=== PATIENT | male | born 1980 | race Caucasian/White ===

== ENCOUNTER → 2017-05-09 | Outpatient (CLI) | payer BC ==
--- NOTE | 2017-05-09 15:05 | RADIOLOGY REPORT (SQ) ---
EXAM DESCRIPTION: FOOT LEFT COMPLETE COMPLETED DATE/TIME: 05/09/2017 1:01 pm REASON FOR STUDY: LEF FOOT FX (M84.375) M84.375A STRESS FRACTURE, LEFT FOOT, INITIAL ENCOUNTER FOR F COMPARISON: None. NUMBER OF VIEWS: Three views. TECHNIQUE: AP, lateral and oblique radiographic images acquired of the left foot. LIMITATIONS: None. FINDINGS: MINERALIZATION: Normal. BONES: No acute fracture or dislocation. No worrisome bone lesions. JOINTS: No effusions. SOFT TISSUES: No radiopaque foreign body. Diffuse forefoot soft tissue swelling. 1 cm calcification /ossification along the lateral aspect of the calcaneocuboid joint, likely from calcific tendinopathy along the peroneal tendon OTHER: No other significant finding. IMPRESSION: No acute fracture Mild forefoot soft tissue swelling TECHNICAL DOCUMENTATION: JOB ID: [id number] [employer]- All Rights Reserved
== END ==
LOC: RAD 12:29
PROVIDERS: ATTEND Podiatrist Foot & Ankle Surgery
DX: M84.375A Stress fracture, left foot, initial encounter for fracture (principal)

== ENCOUNTER 2020-05-02 12:32 | Emergency (ER) | payer BC ==
[2020-05-02] MEDS ORDERED: ASPIRIN 81 MG TABLET, CHEWABLE PO ONE (14:30)
--- NOTE | 2020-05-02 14:33 | ER Document Report ---
ED Medical Screen (RME) - General Chief Complaint: Chest Pain Stated Complaint: CHEST PAIN Time Seen by Provider: 05/02/20 14:23 Primary Care Provider: DYLAN CALDERA DPM [Primary Care Provider] - Follow up as needed Notes: HPI: 39-year-old male who does smoke with family history of coronary artery disease presenting for onset of sharp stabbing type chest pressure in the left chest with some tingling in the left shoulder and arm that began when he woke up around 6:30 AM. Occasional shortness of breath not consistent. Does not change with position, no injury. States when he does move the left arm he feels like the discomfort does seem to reproduce slightly in the left lateral chest wall. States he had an episode like this several weeks ago that went away after a day. Has never had it evaluated. PHYSICAL EXAMINATION: There is no reproducible tenderness on palpation of the left chest wall. Lung sounds are clear to auscultation regular rate and rhythm. I have greeted and performed a rapid initial assessment of this patient. A comprehensive ED assessment and evaluation of the patient, analysis of test results and completion of medical decision making process will be conducted by an additional ED providers. TRAVEL OUTSIDE OF THE [place] IN LAST 30 DAYS: No Physical Exam - Vital signs Vitals: Temp Pulse Resp BP Pulse Ox 97.9 F 71 14 145/83 H 98 05/02/20 12:44 05/02/20 12:44 05/02/20 12:44 05/02/20 12:44 05/02/20 12:44 Course - Vital Signs Vital signs: Temp Pulse Resp BP Pulse Ox 97.9 F 71 14 145/83 H 98 05/02/20 12:44 05/02/20 12:44 05/02/20 12:44 05/02/20 12:44 05/02/20 12:44 Doctor's Discharge - Discharge Referrals: DYLAN CALDERA DPM [Primary Care Provider] - Follow up as needed
[2020-05-02 15:07] LABS: ABSOLUTE BASOPHILS # (AUTO) 0.1 10^3/uL (0.0-0.2); ABSOLUTE EOSINOPHILS # (AUTO) 0.1 10^3/uL (0.0-0.6); ABSOLUTE LYMPHOCYTES (AUTO) 3.1 10^3/uL (0.5-4.7); ABSOLUTE MONOCYTES (AUTO) 0.6 10^3/uL (0.1-1.4); ABSOLUTE NEUT (AUTO) 4.7 10^3/uL (1.7-8.2); BASOPHILS % (AUTO) 0.8 % (0-2); EOSINOPHILS % (AUTO) 1.4 % (0-6); HEMATOCRIT 40.9 % (37.9-51.0); HEMOGLOBIN 14.8 g/dL (13.5-17.0); LYMPHOCYTES % (AUTO) 36.1 % (13-45); MEAN CORPUSCULAR HEMOGLOBIN 31.5 pg (27.0-33.4); MEAN CORPUSCULAR HGB CONC 36.2 g/dL (32.0-36.0); MEAN CORPUSCULAR VOLUME 87 fl (80-97); MONOCYTES % (AUTO) 6.8 % (3-13); PLATELET COUNT 248 10^3/uL (150-450); RED BLOOD COUNT 4.69 10^6/uL (4.35-5.55); RED CELL DISTRIBUTION WIDTH 13.7 % (11.5-14.0); SEGMENTED NEUTROPHILS % (AUTO) 54.9 % (42-78); TOTAL CELLS COUNTED % (AUTO) 100 %; WHITE BLOOD COUNT 8.6 10^3/uL (4.0-10.5)
--- NOTE | 2020-05-02 15:10 | RADIOLOGY REPORT (SQ) ---
EXAM DESCRIPTION: CHEST 2 VIEWS IMAGES COMPLETED DATE/TIME: 05/02/2020 3:02 pm REASON FOR STUDY: chest pain COMPARISON: None. EXAM PARAMETERS: NUMBER OF VIEWS: two views TECHNIQUE: Digital Frontal and Lateral radiographic views of the chest acquired. RADIATION DOSE: NA LIMITATIONS: none FINDINGS: LUNGS AND PLEURA: No opacities, masses or pneumothorax. No pleural effusion. MEDIASTINUM AND HILAR STRUCTURES: No masses or contour abnormalities. HEART AND VASCULAR STRUCTURES: Heart normal size. No evidence for failure. BONES: No acute findings. HARDWARE: None in the chest. OTHER: No other significant finding. IMPRESSION: NO ACUTE RADIOGRAPHIC FINDING IN THE CHEST. TECHNICAL DOCUMENTATION: JOB ID: [id number] 2010 [employer]- All Rights Reserved Reading location - IP/workstation name: [email or web address]
[2020-05-02 15:24] LABS: ALBUMIN 4.8 g/dL (3.5-5.0); ALKALINE PHOSPHATASE 55 U/L (38-126); ANION GAP 6 (5-19); ASPARTATE AMINO TRANSFERASE 26 U/L (17-59); BILIRUBIN,TOTAL 0.4 mg/dL (0.2-1.3); BLOOD UREA NITROGEN 11 mg/dL (7-20); CALCIUM 9.6 mg/dL (8.4-10.2); CARBON DIOXIDE 27 mmol/L (22-30); CHLORIDE 105 mmol/L (98-107); GLUCOSE 105 mg/dL (75-110); POTASSIUM 4.4 mmol/L (3.6-5.0); TOTAL PROTEIN 7.8 g/dL (6.3-8.2)
--- NOTE | 2020-05-02 18:01 | ER Document Report ---
ED Cardiac - General Chief Complaint: Chest Pain > 30 Stated Complaint: CHEST PAIN Time Seen by Provider: 05/02/20 14:23 Primary Care Provider: DYLAN CALDERA DPM [ACTIVE STAFF] - Follow up as needed Notes: CHIEF COMPLAINT: Chest pain HPI:HPI: 39-year-old male who does smoke with family history of coronary artery disease presenting for onset of sharp stabbing type chest pressure in the left chest with some tingling in the left shoulder and arm that began when he woke up around 6:30 AM. Occasional shortness of breath not consistent. Does not change with position, no injury. States when he does move the left arm he feels like the discomfort does seem to reproduce slightly in the left lateral chest wall. States he had an episode like this several weeks ago that went away after a day. Has never had it evaluated. ROS: See HPI - all other systems were reviewed and are otherwise negative Constitutional: no fever Eyes: no drainage, no blurred vision ENT: no runny nose, no sore throat Cardiovascular: + chest pain Resp: + SOB, no cough GI: no vomiting, no diarrhea, no abdominal pain : no dysuria Integumentary: no rash Allergy: no hives Musculoskeletal: no extremity pain or swelling Neurological: no numbness/tingling, no weakness MEDICATIONS: I agree with the patient medications as charted by the RN. ALLERGIES: I agree with the allergies as charted by the RN. PAST MEDICAL HISTORY/PAST SURGICAL HISTORY: Reviewed and agree as charted by RN. SOCIAL HISTORY: Reviewed and agree as charted by RN. FAMILY HISTORY: No significant familial comorbid conditions directly related to patient complaint EXAM: Reviewed vital signs as charted by RN. CONSTITUTIONAL: Alert and oriented and responds appropriately to questions. Well-appearing; well-nourished HEAD: Normocephalic; atraumatic EYES: PERRL; Conjunctivae clear, sclerae non-icteric ENT: normal nose; no rhinorrhea; moist mucous membranes; pharynx without lesions noted, no uvula edema or deviation, no tonsillar hypertrophy, phonation normal NECK: Supple without meningismus; non-tender; no cervical lymphadenopathy, no masses CARD: RRR; no murmurs, no clicks, no rubs, no gallops; symmetric distal pulses RESP: Normal chest excursion without splinting or tachypnea; breath sounds clear and equal bilaterally; no wheezes, no rhonchi, no rales, pulse oximetry 98% on room air not hypoxic. Minimal tenderness on the lateral chest wall on palpation ABD/GI: Normal bowel sounds; non-distended; soft, non-tender, no rebound, no guarding; no palpable organomegaly or masses. BACK: The back appears normal and is non-tender to palpation, there is no CVA tenderness EXT: Normal ROM in all joints; non-tender to palpation; no cyanosis, no ef fusions, no edema SKIN: Normal color for age and race; warm; dry; good turgor; no acute lesions n oted NEURO: Moves all extremities equally; Motor and sensory function intact PSYCH: The patient's mood and manner are appropriate. Grooming and personal hygiene are appropriate. MDM: 39-year-old male presenting with chest pain today. Not dyspneic with speaking. Mildly reproducible. Patient believes there is swelling of the chest wall that this is not visualized. Patient had pain for 8 hours consistently at the time of his initial examination and lab work, troponin was negative, once that was obtained given the timeframe. EKG normal sinus rhythm without ectopy, MS 156. Interpreted by emergency department physician. Patient heart score is 1. I believe he has fairly low risk for an acute cardiac event. Will refer to cardiology for outpatient evaluation and stress test. Will prescribe Voltaren for chest wall inflammation. I discussed this at length with the patient and his spouse are in agreement with this plan. They will return for any worsening problems or condition TRAVEL OUTSIDE OF THE [place] IN LAST 30 DAYS: No - Related Data Allergies/Adverse Reactions: No Known Allergies Allergy (Verified 05/02/20 16:00) Past Medical History - Social History Smoking Status: Current Every Day Smoker Frequency of alcohol use: None Drug Abuse: Marijuana Family History: CAD, Hypertension Physical Exam - Vital signs Vitals: Temp Pulse Resp BP Pulse Ox 97.9 F 71 14 145/83 H 98 05/02/20 12:44 05/02/20 12:44 05/02/20 12:44 05/02/20 12:44 05/02/20 12:44 Course - Vital Signs Vital signs: Temp Pulse Resp BP Pulse Ox 97.9 F 71 16 120/72 100 05/02/20 12:44 05/02/20 12:44 05/02/20 17:01 05/02/20 17:01 05/02/20 17:01 - Laboratory Result Diagrams: 05/02/20 14:50 05/02/20 14:50 Laboratory results interpreted by me: 05/02/20 14:50 [facility] 36.2 H Discharge - Discharge Clinical Impression: Chest pain Qualifiers: Chest pain type: unspecified Qualified Code(s): R07.9 - Chest pain, unspecified Condition: Stable Disposition: HOME, SELF-CARE Additional Instructions: Your lab work, EKG and chest x-ray did not show acute findings today. It is more likely this is musculoskeletal. Follow-up closely with cardiology outpatient for stress test as discussed. Take the Voltaren for pain and inflammation as prescribed. If you have worsening of your symptoms return for reevaluation. No heavy lifting. Warm heat to the chest wall 2-3 times daily Prescriptions: Diclofenac Sodium [Voltaren 50 Mg Tablet.] 50 mg PO BID #20 tablet. Referrals: DYLAN CALDERA DPM [ACTIVE STAFF] - Follow up as needed DEONTE ORDAZ MD [ACTIVE STAFF] - Follow up as needed
[2020-05-02 18:09] VITALS: BP 134/88
--- NOTE | 2020-05-02 22:12 | EKG REPORT ---
SEVERITY:- NORMAL ECG - SINUS RHYTHM : Confirmed by: Nandini Desai MD 02-May-2020 22:11:36
== END 2020-05-02 18:20 | disposition home or self-care (01) ==
LOC: ER 12:32
DX: R07.89 Other chest pain (principal); R20.2 Paresthesia of skin; R06.02 Shortness of breath; F17.200 Nicotine dependence, unspecified, uncomplicated; F12.10 Cannabis abuse, uncomplicated; Z82.49 Family history of ischemic heart disease and other diseases of the circulatory system
CPT/HCPCS: 36415; 71046; 80053; 84443; 84484; 85025; 93005; 93010; 99285